=== PATIENT | male | born 1995 | race Caucasian/White ===

== ENCOUNTER 2018-12-11 21:22 | Emergency (ER) | payer SELFPAY ==
[2018-12-11] MEDS ORDERED: AZITHROMYCIN 250 MG TAB ONE (21:56)
[2018-12-11] MEDS ORDERED: WATER FOR INJ,STERILE 10 ML ONE (21:57)
[2018-12-11] MEDS ORDERED: CEFTRIAXONE 250 MG/VIAL ONE (21:57)
[2018-12-11 22:15] LABS: Urine Bacteria NONE SEEN /HPF (NONE SEEN); Urine Culture Reflex Order NOT NEEDED; Urine RBC NONE SEEN /HPF (NONE SEEN)
--- NOTE | 2018-12-11 22:27 | EDPHYS ---
Physician Documentation [facility] Name: Yaniv Hammond Age: 23 yrs Sex: Male : 1995 Arrival Date: 12/11/2018 Time: 21:25 Bed 8 Private MD: ED Physician Sen Arreguin HPI: 12/11 22:28 This 23 yrs old Male presents to ER via Ambulatory with complaints of UTI. kb 22:28 The patient presents with urinary symptoms, dysuria. Onset: The symptoms/episode kb began/occurred 7 day(s) ago. Modifying factors: The symptoms are alleviated by nothing, the symptoms are aggravated by urinating. Associated signs and symptoms: The patient has no apparent associated signs or symptoms. Severity of symptoms: At their worst the symptoms were moderate, in the emergency department the symptoms are unchanged. The patient has not experienced similar symptoms in the past. The patient has not recently seen a physician. 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 - Social history:: Smoking status: Patient/guardian denies using tobacco. - Ebola Screening: : Patient denies travel to an Ebola-affected area in the 21 days before illness onset. ROS: 22:28 Constitutional: Negative for fever, chills, and weight loss, Neck: Negative for injury, kb pain, and swelling, Cardiovascular: Negative for chest pain, palpitations, and edema, Respiratory: Negative for shortness of breath, cough, wheezing, and pleuritic chest pain, Abdomen/GI: Negative for abdominal pain, nausea, vomiting, diarrhea, and constipation, Back: Negative for injury and pain, MS/Extremity: Negative for injury and deformity, Skin: Negative for injury, rash, and discoloration, Neuro: Negative for headache, weakness, numbness, tingling, and seizure. 22:28 : Positive for burning with urination. Exam: 22:26 Constitutional: This is a well developed, well nourished patient who is awake, alert, kb and in no acute distress. Head/Face: Normocephalic, atraumatic. ENT: Nares patent. No nasal discharge, no septal abnormalities noted. Tympanic membranes are normal and external auditory canals are clear. Oropharynx with no redness, swelling, or masses, exudates, or evidence of obstruction, uvula midline. Mucous membranes moist. Neck: Trachea midline, no thyromegaly or masses palpated, and no cervical lymphadenopathy. Supple, full range of motion without nuchal rigidity, or vertebral point tenderness. No Meningismus. Chest/axilla: Normal chest wall appearance and motion. Nontender with no deformity. No lesions are appreciated. Cardiovascular: Regular rate and rhythm with a normal S1 and S2. No gallops, murmurs, or rubs. Normal PMI, no JVD. No pulse deficits. Respiratory: Lungs have equal breath sounds bilaterally, clear to auscultation and percussion. No rales, rhonchi or wheezes noted. No increased work of breathing, no retractions or nasal flaring. Abdomen/GI: Soft, non-tender, with normal bowel sounds. No distension or tympany. No guarding or rebound. No evidence of tenderness throughout. Male : Normal genitalia with no discharge or lesions. Skin: Warm, dry with normal turgor. Normal color with no rashes, no lesions, and no evidence of cellulitis. MS/ Extremity: Pulses equal, no cyanosis. Neurovascular intact. Full, normal range of motion. Neuro: Awake and alert, GCS 15, oriented to person, place, time, and situation. Cranial nerves II-XII grossly intact. Motor strength 5/5 in all extremities. Sensory grossly intact. Cerebellar exam normal. Normal gait. Vital Signs: 21:29 BP 152 / 97; Pulse 72; Resp 18; Temp 98.2; Pulse Ox 98% on R/A; Weight 91.17 kg (R); aj1 Height 6 ft. 1 in. (185.42 cm) (R); Pain 0/10; 21:29 Body Mass Index 26.52 (91.17 kg, 185.42 cm) aj1 MDM: 21:31 Patient medically screened. kb 22:25 Data reviewed: vital signs, nurses notes. Data interpreted: Pulse oximetry: on room air kb is 98 %. Interpretation: normal. Counseling: I had a detailed discussion with the patient and/or guardian regarding: the historical points, exam findings, and any diagnostic results supporting the discharge/admit diagnosis, lab results, the need for outpatient follow up, a urologist, to return to the emergency department if symptoms worsen or persist or if there are any questions or concerns that arise at home. 12/11 21:42 Order name: Urine Microscopic Only; Complete Time: 22:22 kb 12/11 21:45 Order name: Urine Dipstick--Ancillary (enter results); Complete Time: 22:31 em1 12/11 21:42 Order name: Urine Dipstick-Ancillary (obtain specimen); Complete Time: 21:44 kb Administered Medications: 22:04 Drug: Zithromax 1 grams Route: PO; jb4 22:34 Follow up: Response: No adverse reaction jb4 22:04 Drug: Rocephin (cefTRIAXone) 250 mg Route: IM; Site: right gluteus; jb4 22:30 Follow up: Response: No adverse reaction jb4 Disposition: 12/12 07:11 Co-signature as Attending Physician, Sen Arreguin MD Available for consultation at ps1 all times . Disposition: 12/11/18 22:26 Discharged to Home. Impression: Dysuria. - Condition is Stable. - Discharge Instructions: Dysuria, Sexually Transmitted Disease, [id number]. - Medication Reconciliation Form, Thank You Letter, Antibiotic Education, Prescription Opioid Use form. - Follow up: Emergency Department; When: As needed; Reason: Worsening of condition. Follow up: Private Physician; When: 2 - 3 days; Reason: Recheck today's complaints, Continuance of care, Re-evaluation by your physician. Follow up: James Lehman MD; When: 2 - 3 days; Reason: Recheck today's complaints. Signatures: Dispatcher [employer] Courtney Hatch, ANALYTICS ASSOCIATE-C ANALYTICS ASSOCIATE-Ckb Holly Marvin RN RN aj1 Chetan Brady RN RN jb4 Sen Arreguin MD MD ps1 Corrections: (The following items were deleted from the chart) 12/11 22:31 22:26 12/11/2018 22:26 Discharged to Home. Impression: Dysuria. Condition is Stable. kb Forms are Medication Reconciliation Form, Thank You Letter, Antibiotic Education, Prescription Opioid Use. Follow up: Emergency Department; When: As needed; Reason: Worsening of condition. Follow up: Private Physician; When: 2 - 3 days; Reason: Recheck today's complaints, Continuance of care, Re-evaluation by your physician. kb 22:35 22:31 12/11/2018 22:26 Discharged to Home. Impression: Dysuria. Condition is Stable. jb4 Discharge Instructions: Dysuria, Sexually Transmitted Disease, [id number]. Forms are Medication Reconciliation Form, Thank You Letter, Antibiotic Education, Prescription Opioid Use. Follow up: Emergency Department; When: As needed; Reason: Worsening of condition. Follow up: Private Physician; When: 2 - 3 days; Reason: Recheck today's complaints, Continuance of care, Re-evaluation by your physician. Follow up: James Lehman; When: 2 - 3 days; Reason: Recheck today's complaints. kb
--- NOTE | 2018-12-11 22:27 | ER ---
Nurse's Notes [facility] Name: Yaniv Hammond Age: 23 yrs Sex: Male : 1995 Arrival Date: 12/11/2018 Time: 21:25 Bed 8 Private MD: Diagnosis: Dysuria Presentation: 12/11 21:27 Presenting complaint: Patient states: "It shahid when I pee since . The real aj1 reason that brought me in is now the shaft is swollen". Transition of care: patient was not received from another setting of care. Onset of symptoms was 2018. Risk Assessment: Do you want to hurt yourself or someone else? Patient reports no desire to harm self or others. Initial Sepsis Screen: Does the patient meet any 2 criteria? No. Patient's initial sepsis screen is negative. Does the patient have a suspected source of infection? Yes: Dysuria/Frequency/Urgency/UTI. Care prior to arrival: None. 21:27 Method Of Arrival: Ambulatory aj 21:27 Acuity: MARCELINA 4 aj1 Triage Assessment: 21:29 General: Appears in no apparent distress. comfortable, Behavior is calm, cooperative, aj1 appropriate for age. Pain: Denies pain. Neuro: Level of Consciousness is awake, alert, obeys commands. Cardiovascular: Patient's skin is warm and dry. Respiratory: Airway is patent Respiratory effort is even, unlabored, Respiratory pattern is regular, symmetrical. : Parent/caregiver report the patient having burning with urination. 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 - Social history:: Smoking status: Patient/guardian denies using tobacco. - Ebola Screening: : Patient denies travel to an Ebola-affected area in the 21 days before illness onset. Screenin:50 Abuse screen: Denies threats or abuse. Nutritional screening: No deficits noted. jb4 Tuberculosis screening: No symptoms or risk factors identified. Fall Risk None identified. Assessment: 21:50 General: Appears in no apparent distress. comfortable, Behavior is calm, cooperative, jb4 appropriate for age. Pain: Denies pain. Neuro: Level of Consciousness is awake, alert, obeys commands, Oriented to person, place, time, situation. Cardiovascular: Patient's skin is warm and dry. Respiratory: Airway is patent Respiratory effort is even, unlabored, Respiratory pattern is regular, symmetrical. GI: No deficits noted. No signs and/or symptoms were reported involving the gastrointestinal system. : Swelling noted on penis Reports burning with urination, since since last . EENT: No deficits noted. No signs and/or symptoms were reported regarding the EENT system. Derm: Skin is intact, Skin is pink, warm \\T\\ dry. Musculoskeletal: Circulation, motion, and sensation intact. Range of motion: intact in all extremities. 22:34 Reassessment: Patient appears in no apparent distress at this time. Patient and/or jb4 family updated on plan of care and expected duration. Pain level reassessed. Patient is alert, oriented x 3, equal unlabored respirations, skin warm/dry/pink. Vital Signs: 21:29 BP 152 / 97; Pulse 72; Resp 18; Temp 98.2; Pulse Ox 98% on R/A; Weight 91.17 kg (R); aj1 Height 6 ft. 1 in. (185.42 cm) (R); Pain 0/10; 21:29 Body Mass Index 26.52 (91.17 kg, 185.42 cm) aj1 ED Course: 21:25 Patient arrived in ED. cl3 21:26 Court[facility] Avery [facility]C [facility] kb 21:26 Sen Arreguin MD is Attending Physician. kb 21:28 Triage completed. aj1 21:29 Arm band placed on Patient placed in an exam room. aj1 21:50 Chetan Brady, RUTHIE is Primary Nurse. jb4 21:50 Patient has correct armband on for positive identification. Placed in gown. Bed in low jb4 position. Call light in reach. Side rails up X 1. Pulse ox on. NIBP on. 22:30 James Lehman MD is Referral Physician. kb 22:34 No provider procedures requiring assistance completed. Patient did not have IV access jb4 during this emergency room visit. Administered Medications: 22:04 Drug: Zithromax 1 grams Route: PO; jb4 22:34 Follow up: Response: No adverse reaction jb4 22:04 Drug: Rocephin (cefTRIAXone) 250 mg Route: IM; Site: right gluteus; jb4 22:30 Follow up: Response: No adverse reaction jb4 Outcome: 22:26 Discharge ordered by MD. dejesus 22:34 Discharged to home ambulatory. jb4 22:34 Condition: stable 22:34 Discharge instructions given to patient, Instructed on discharge instructions, follow up and referral plans. Demonstrated understanding of instructions, follow-up care. 22:35 Patient left the ED. jb4 Signatures: Courtney Avery, [employer]-C [employer]-CkHolly Ingram RN RN aj1 Chetan Brady RN RN jb4 Dominick Choi cl3 Corrections: (The following items were deleted from the chart) 21:31 21:27 Presenting complaint: Patient states: "It shahid when I pee since ." aj1 aj1
[2018-12-11 22:30] LABS: Urine Blood NEGATIVE (NEG); Urine Glucose NEGATIVE (NEG); Urine Protein NEGATIVE (NEG); Urine pH 6.5 (5.0-7.0)
[2018-12-11 22:39] VITALS: BP 152/97; TEMP 98.2; O2SAT 98
== END 2018-12-11 22:35 | disposition home or self-care (01) ==
LOC: ER 21:22
DX: R30.0 Dysuria (principal)
CPT/HCPCS: 81003; 81015; 96372; 99283; J0696